=== PATIENT | female | born 1995 | race Caucasian/White ===

== ENCOUNTER 2021-12-26 14:41 | Emergency (ER) | payer BC ==
[2021-12-26] MEDS: Lidocaine 1% 5 ML VIAL INJECT ONE (15:17)
[2021-12-26] MEDS: Diphtheria,Pertussis(Acell),Tetanus Vaccine 0.5 ML Syringe IM ONE (16:02)
== END 2021-12-26 16:16 | disposition home or self-care (01) ==
LOC: MW.ED 14:41
DX: S61.412A Laceration without foreign body of left hand, initial encounter (principal); Z23 Encounter for immunization; W26.0XXA Contact with knife, initial encounter
CPT/HCPCS: 12001; 90471; 90715; 99282-25